=== PATIENT | female | born 1985 | race Two or more races ===

== ENCOUNTER 2023-10-19 17:14 | Outpatient (CLI) | payer OTHER, SELFPAY | END 2023-10-19 17:15 | disposition home or self-care (01) | LOC: NFLDREF 10-25 10:55 | PROVIDERS: PCP Family Medicine; Referring Provider Family Medicine; Visit Provider Nurse Practitioner Family | DX: R30.0 Dysuria (principal); N89.8 Other specified noninflammatory disorders of vagina; B37.31 Acute candidiasis of vulva and vagina | CPT/HCPCS: 87086 ==

== ENCOUNTER 2024-06-15 08:23 | Outpatient (CLI) | payer BC, SELFPAY | END 2024-06-15 08:24 | disposition home or self-care (01) | PROVIDERS: PCP Family Medicine; Visit Provider Registered Nurse | DX: Z00.00 Encounter for general adult medical examination without abnormal findings (principal); Z13.1 Encounter for screening for diabetes mellitus; Z13.6 Encounter for screening for cardiovascular disorders; Z13.29 Encounter for screening for other suspected endocrine disorder | CPT/HCPCS: 80061; 84443 ==

== ENCOUNTER 2024-07-03 09:00 | Outpatient (RCR) | payer BC, SELFPAY ==
--- NOTE | 2024-06-28 10:59 | PT.OPEX ---
PT [place] [facility] Eval PT [facility] Out[facility] Eval Start: 06/28/24 09:19 Freq: Status: Active Protocol: Document 06/28/24 09:19 [facility] (Rec: 06/28/24 10:51 [facility] [id number]) E-signed By Ochoa Stafford, PT Physical Therapy Outpatient Evaluation Insurance Information Recert Due Date 09/20/24 Insurance Name Medicaid,Blue Cross/Blue Shield Insurance Information/Comments [place] Medical Diagnosis OA of patellofemoral joint both knees M17.0 Treating Diagnosis Bilateral knee pain M25.561/ 562 Difficulty walking R26.2 Muscle weakness M62.81 Referring MD Kristina Roland, NUNO Subjective Preferred Name Jana (Dmitry) Subjective Jana presents with bilateral knee pain x 5 years, insidious onset. She had PT ~1 year ago in [place] that consisted primarily of LE strengthening. No significant help, but she continues to do the HEP. She feels the pain inside the knee joints and in the front. Per pt, imaging shows severe OA under patella and knee joints. Patient's mom also had early onset knee OA, starting at 40 years old. By 48 yo she was in a wheelchair. Jana has purchased three different knee knees, some with lateral stays. They help just a little bit. Jana describes her pain as feeling unstable, burning/hot in the knees. It feels like her knees are breaking She also has developed low back pain, she thinks, due to compensating for her knee pain . 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): has to get on her knees to bathe, lifting/moving , transferring Precautions Treatment Precautions/Contraindications Mexican speaking/needs science interpreter Therapy Limitations/Systems Review Not Limited Objective Other/Pertinent Objective Posture: genu valgus, patella amaris SLS: 10 sec each leg, mild sway SL heel raises: R: 8x (pain) L: 10x ROM: LE R: hip WNL knee WNL moderate pain w/ end range flexion L: hip WNL knee WNL, mild discomfort end range knee flexion ankles: WFL, shahzad Strength: LEs Hip flexion: R: 4-/5 L: 4-/5 Hip abduction: R: 4/5 L: 4/5 Hip extension: R: 4-/5 L: 4-/ 5 Knee extension: R: 3+/5 L: 4- /5 Ankle PF: R: 4-/5 (+ knee pain ) L: 4+/5 Ramu test: R: L knee to chest, R thigh to plinth, knee relaxed to ~30 deg knee flexion, pain with stretch L: R knee to chest, L thigh off plinth ~1 inch. + back pain with stretch Palpation: R knee: pain at joint line and w/ patellar med/lateral glides L knee: pain at joint line, painfree patellar glides Functional Test Performed & Score Ambulation: mild limp R, decreased left step length Stairs: step to pattern, favoring R, more painful, knee Assessment Assessment/Impression 38 year old female with apparent genetic predisposition to early onset OA, as her mom reportedly developed knee arthritis when she was [age] and was in a wheelchair by the time she was [age] years old. Jana presents with antalgic gait (R knee pain), pain limiting strength both knees, full but painful R knee flexion, tight hip flexors/quads, biomechanical dysfunction of both knees with genu valgus and patella amaris that likely contribute to her knee joint wear. Jana has been doing a HEP in supine that was given to her by PT last year in [place]. Today, I supplemented her HEP with core strength, hip stretches and closed chain quad strengthening. I do believe that Jana would benefit from a medical membership at [address] [place] [address] to have access to their pool and hot tub. She may also want to consider am OA lateral unloading knee brace, especially for her right knee which appears to be the more painful/involved LE. I recommend continued skilled PT to progress in a closed chain strength and stability HEP. Primary Functional Limitations ambulation, squat, stairs, sleep, get down to/up from floor, caretaking dependent teenage daughter. Plan of Care Rehabilitation Potential Good Rehabilitation Potential Comments Fair given her severity of knee OA and prior experience with PT Good given her age and compliance with PT HEP Physical Therapy Goals In 6-8 weeks, patient will: 1) Ambulate in the community up to 1/4 mile, knee pain max 310 2) Report 50% reduction in knee pain disrupting sleep quality 3) Ambulate up/down stairs w/ one rail, reciprocal, knee pain max 4/10 4) Demo full painfree R knee flexion ROM to facilitate squat to floor when assisting daughter w/ bathing 5) I with HEP to facilitate ongoing LE/core strength and self-management of residual symptopms Coordination/Communication With Referral Source Treatment Plan/Direct Interventions Joint Mobilization,Manual Therapy,Neuromuscular Re-ed, Self-Care/Home Management, Therapeutic Activities, Therapeutic Exercises Direct Interventions Clarification Rec pool ex. Progressive HEP( Comments CKC/motor control, core/LEs) Frequency/Duration 1x/ week for 6-8 weeks Patient Will Be Discharged From Therapy Completion of LTG(s), Independent w/HEP, Independently Progressing Evaluation Billing Untimed Code Treatment Minutes 30 Complexity Low Certification Information Initial Certification Date 06/28/24 Ending Certification Date 09/20/24 Provider Signature Required Yes Provider Signature Shows Agreement With POC & Medical Necessity Physician NPI Number Write NPI# Here Physician Comment/Change : Physician Signature & Date Requested Please Sign/Date Here
--- NOTE | 2024-06-28 11:01 | REH.PT ---
Huber Acevedo. I evaluated Jana today. I think she would benefit from access to [facility] for use of their pool and hot tub. Would you be willing to write a prescription for a medical membership? She will still need to pay, but at least it would provide her access. Also, what are your thoughts on her possibly using an OA lateral unloading right knee brace? Her right knee appears to be more involved than her left currently. Thank you for your help with these questions. Ochoa Stafford PT, [phone]
== END 2024-10-11 17:26 | disposition home or self-care (01) ==
PROVIDERS: PCP Registered Nurse; Visit Provider Physician Assistant Surgical
DX: M17.0 Bilateral primary osteoarthritis of knee (principal); M25.562 Pain in left knee; M25.561 Pain in right knee; M62.81 Muscle weakness (generalized); R26.2 Difficulty in walking, not elsewhere classified; Z51.89 Encounter for other specified aftercare
CPT/HCPCS: 97110; 97161; T1013

== ENCOUNTER 2024-07-05 10:38 | Outpatient (CLI) | payer BC, SELFPAY ==
--- NOTE | 2024-07-05 10:45 | CRLHL7_ITS ---
For Patients: As a result of the Century Cures Act, medical imaging exams and procedure reports are released immediately into your electronic medical record. You may view this report before your referring provider. If you have questions, please contact your health care provider. BILATERAL SCREENING MAMMOGRAM WITH COMPUTER-AIDED DETECTION AND TOMOSYNTHESIS TECHNIQUE: CC and MLO views were obtained. These mammographic images have been obtained using full-field digital technique. These mammographic images were interpreted with the benefit of computer-aided detection. Breast Tomosynthesis was used in this interpretation. COMPARISON FILM: Baseline. FINDINGS: There are scattered areas of fibroglandular density. IMPRESSION: There is no radiographic evidence for malignancy. ASSESSMENT: BI-RADS Category 1: Negative RECOMMENDATION: Routine screening mammogram in 1 year. A lay language report of this examination will be provided to the patient. Huseyin Khan M.D. Diagnostic Radiologist [email or web address] SP/Dictated by: Huseyin Khan MD @ 07/13/2024 9:51:00 AM (Electronically Signed)
== END 2024-07-05 10:39 | disposition home or self-care (01) ==
PROVIDERS: PCP Registered Nurse; Visit Provider Registered Nurse
DX: Z12.31 Encounter for screening mammogram for malignant neoplasm of breast (principal)
CPT/HCPCS: 77063; 77067; T1013

== ENCOUNTER 2024-08-26 09:54 | Emergency (ER) | payer MEDICAID, SELFPAY ==
[2024-08-26 10:04] VITALS: BP 115/77; PULSE 70; RESP 18; TEMP 36.6; O2SAT 98; BMI 32.4
--- NOTE | 2024-08-26 11:29 | ED_ITS ---
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 She has a history of low back pain in the past and actually had an MRI about 5 years ago that showed a small bulging disc in her back. She has been having trouble with recurrent low back pain again for several months. It has been getting gradually worse over the past several weeks. She has already been seeing her doctor and has been taking Tylenol, ibuprofen, and celecoxib. No known specific injury to make it worse. She does note that it tends to get worse when she does all the activities such as moving, walking, bending or other activities for cleaning her house. It has been getting worse. Today it is more painful when she tries to straighten up or walk around. Sometimes she also gets pain radiating to her right buttock and sometimes a little bit of pain all way down into her right foot. She is concerned that she might have a new or worsening bulging in her disc. Urination and bowel movements have been normal. No fever. No weight loss. No known injury or fall. The pain does not radiate up into her flank or rib cage. It is primarily across the lower half of her lumbar spine and worse on the right than on the left. Related Data Previous Rx's ?Medication ?Instructions ?Recorded cyclobenzaprine 10 mg tablet 10 mg PO TID PRN muscle spasm #14 08/26/24 tabs cyclobenzaprine 10 mg tablet 10 mg PO TID PRN muscle spasm #14 08/26/24 tabs hydrocodone 5 mg-acetaminophen 325 1 tab PO Q4-6H PRN pain #14 tabs 08/26/24 mg tablet hydrocodone 5 mg-acetaminophen 325 1 tab PO Q4H PRN pain #14 tabs 08/26/24 mg tablet methylprednisolone 4 mg tablets in See Rx Instructions PO .COMPLEX 08/26/24 a dose pack (Medrol (Danilo)) #21 ea methylprednisolone 4 mg tablets in See Rx Instructions PO .COMPLEX 08/26/24 a dose pack (Medrol (Danilo)) #21 ea ondansetron 4 mg disintegrating 4 mg PO Q8H PRN nausea and 08/26/24 tablet vomiting #10 tabs ondansetron HCl 4 mg tablet 4 mg PO Q8H PRN nausea and 08/26/24 vomiting 4 days #10 tabs Allergies Allergy/AdvReac Type Severity Reaction Status Date / Time No Known Drug Allergies Allergy Verified 08/26/24 10:09 Exam Narrative: Exam Narrative: Constitutional: Appears well-developed and well-nourished. Alert through pulp refiner operator. I think she understands quite a bit of Nepali.. Conversant. Non toxic. HENT: Head: Atraumatic. Nose: Nose normal. Mouth/Throat: Oral mucosa is clear and moist. no trismus. Eyes: Conjunctivae normal. EOM normal. Pupils equal, round, and reactive to light. No scleral icterus. Neck: Normal range of motion. Neck supple. No tracheal deviation present. Cardiovascular: Normal rate, regular rhythm. No gallop. No friction rub. No murmur heard. Symmetric DP and PT artery pulses Pulmonary/Chest: Effort normal. No stridor. No respiratory distress. No wheezes. No rales. No rhonchi . No tenderness. Abdominal: Soft.No distension. No mass. No tenderness. No rebound. No guarding. Musculoskeletal: RUE: Normal range of motion. No tenderness. No deformity LUE: Normal range of motion. No tenderness. No deformity RLE: Normal range of motion. No edema. No tenderness. No deformity LLE: Normal range of motion. No edema. No tenderness. No deformity Normal inspection of her low back. She is endorsing pain across her lower lumbar spine. There is no midline tenderness or step-off. No redness. No bruising. No rash. Pelvis is stable. Mild pain across her posterior pelvis without any clear point tenderness. Neurological: Alert and oriented to person, place, and time. Normal strength. CN II-VII intact. No sensory deficit. GCS eye subscore is 4. GCS verbal subscore is 5. GCS motor subscore is 6. Normal coordination Sensory: Normal light touch sensation bilaterally on the anteromedial thigh (L3), medial malleolus (L4), dorsal first web space (L5), lateral malleolus (S1). Strength: 5/5 strength hip flexors (L3) on the rig ht and left 5/5 strength in the quadriceps (L4) on t he right and left 5/5 strength in the tibialis anterior 5/5 strength in the EHL (L5) on the righ t and left 5/5 strength in the gastrocnemius (S1) o n the right and left 5/5 strength in the hamstring on the rig ht and left DTRs: symmetric in the patella (2/4) Positive straight leg raise on the right. Negative on the left.. Skin: Skin is warm and dry. No rash noted. No pallor. Normal capillary refill. Psychiatric: Normal mood. Normal affect. Polite. Const: Vital Signs, click to edit/add: Vital Signs - 24 hr 08/26/24 10:04 Temperature 98 F Pulse Rate [Right Pulse Oximeter] 70 Respiratory Rate 18 Blood Pressure [Ri ght Upper Arm] 115/77 Pulse Oximetry 98 Oxygen Delivery Me thod Room Air Course Vital Signs Vital signs: Initial Vital Signs Temperature 98 F 08/26/24 10:04 Temperature Source Temporal Artery Scan 08/26/24 10:04 Pulse Rate 70 08/26/24 10:04 Pulse Rhythm Regular 08/26/24 10:04 Respiratory Rate 18 08/26/24 10:04 Blood Pressure 115/77 08/26/24 10:04 Blood Pressure Mean 89 08/26/24 10:04 Blood Pressure Position Sitting 08/26/24 10:04 Pulse Oximetry 98 08/26/24 10:04 Oxygen Delivery Method Room Air 08/26/24 10:04 Vital Signs Temperature 98 F 08/26/24 10:04 Pulse Rate 70 08/26/24 10:04 Respiratory Rate 18 08/26/24 10:04 Blood Pressure 115/77 08/26/24 10:04 Pulse Oximetry 98 08/26/24 10:04 Oxygen Delivery Method Room Air 08/26/24 10:04 Temperature 98 F 08/26/24 10:04 Pulse Rate 70 08/26/24 10:04 Respiratory Rate 18 08/26/24 10:04 Blood Pressure 115/77 08/26/24 10:04 Pulse Oximetry 98 08/26/24 10:04 Oxygen Delivery Method Room Air 08/26/24 10:04 Medical Decision Making [facility] Narrative Medical decision making narrative: This patient presented with back pain associated with right leg pain and some right leg intermittent numbness. Broad differential considered. The patient did not sustain any trauma, therefore x-rays are not necessary due to the low likelihood of fracture or subluxation. The patient has not had a fever, saddle/perineal anesthesia, bilateral foot numbness, or bowel or bladder dysfunction. There is no clinical evidence of cauda equina syndrome, discitis, spinal/epidural space hematoma or epidural abscess. The neurological exam is normal save for a positive straight leg raise on the right. With the patient's symptoms of several months of back pain getting worse over a few weeks with pain radiating down her right leg and concerned that she may have a lumbar radiculopathy on the right. Unfortunately I am not able to obtain an MRI for her here in the ER today because it is the weekend. She will follow-up with her primary care provider as soon as possible to arrange an outpatient MRI. Her precautions to return to the ER for re-evaluation if she does have any progressing numbness or weakness, new bowel or bladder disturbance, or other worsening or uncontrolled pain, fever or other worsening symptoms. The patient will be discharged with pain medications to use as directed. Ice or heat to the back and stretching exercises. No heavy lifting, bending or twisting. Return if increasing pain, numbness, weakness, or bowel or bladder dysfunction. The patient was advised to schedule follow-up with their primary doctor within 2-3 days to re-assess symptoms. Return precautions reviewed and questions answered. Prescriptions for Medrol dose pack, hydrocodone, Flexeril, and Zofran T use for opiate induced nausea. Opiate and sedation precautions reviewed. Discharge Plan Discharge Clinical Impression: Lumbar radiculopathy, Low back pain Instructions: Acute Low Back Pain (ED), Lumbar Radiculopathy (ED) Additional Instructions: Please call your doctor tomorrow to arrange an ER follow-up appointment for your back within the next 3-5 days. Ask your doctor to recheck your back and if you are still having pain going down your leg, your doctor may order an MRI As we discussed, come back to the ER right away if you have worsening symptoms, new numbness or weakness in your leg, fever, or any other problems. Continue to use ibuprofen or Tylenol if needed for pain. At the prescription muscle relaxer and pain killer if needed. Be careful with pain killers because they cause dizziness, drowsiness, constipation, and can be addictive. Use the nausea medication if needed. Start on the oral steroid today. If you have a bulging disc, this may help your back feel better. . Prescriptions: New hydrocodone-acetaminophen 5-325 mg tablet 1 tab PO Q4H PRN (Reason: pain) Qty: 14 0RF cyclobenzaprine 10 mg tablet 10 mg PO TID PRN (Reason: muscle spasm) Qty: 14 0RF ondansetron HCl 4 mg tablet 4 mg PO Q8H PRN (Reason: nausea and vomiting) 4 Days Qty: 10 0RF methylprednisolone [Medrol (Danilo)] 4 mg tablets,dose pack See Rx Instructions .ROUTE .COMPLEX Qty: 21 0RF Rx Instructions: for 6 days cyclobenzaprine 10 mg tablet 10 mg PO TID PRN (Reason: muscle spasm) Qty: 14 0RF hydrocodone-acetaminophen 5-325 mg tablet 1 tab PO Q4-6H PRN (Reason: pain) Qty: 14 0RF methylprednisolone [Medrol (Danilo)] 4 mg tablets,dose pack See Rx Instructions .ROUTE .COMPLEX Qty: 21 0RF Rx Instructions: for 6 days ondansetron 4 mg tablet,disintegrating 4 mg PO Q8H PRN (Reason: nausea and vomiting) Qty: 10 0RF Stand Alone Forms: fav.or.itth Info Instructions
== END 2024-08-26 13:01 | disposition home or self-care (01) ==
LOC: ED 12:21
PROVIDERS: Emergency Provider Emergency Medicine
DX: M54.16 Radiculopathy, lumbar region (principal)
CPT/HCPCS: 99283

== ENCOUNTER 2024-11-30 08:30 | Outpatient (RCR) | payer MEDICAID, SELFPAY ==
--- NOTE | 2024-10-12 10:11 | PT.OPEX ---
PT [place] Outpatient Eval PT [facility] Outpatient Eval Start: 10/12/24 09:39 Freq: Status: Active Protocol: Document 10/12/24 09:39 EVELYN (Rec: 10/12/24 10:02 EVELYN [id number]) E-signed By Nayla Mckinney DPT Physical Therapy Outpatient Evaluation Insurance Information Recert Due Date 01/10/25 Insurance Name Medicaid,are Medical Diagnosis LBP Treating Diagnosis LBP, R LE radicular pain/sx, core/hip/glut weakness with hx of chronic LBP issues, limited tolerance for bending/ twisting/lifting/housework Subjective Subjective Patient reports chronic LBP with R radicular pain/sx. States she's had LBP off/on for the last 5-6 years. She had an MRI about 5 years ago showing a bulging disc in her LB. About a month ago, she woke up with R LE numbness and went to the ED. She was issued some pain meds and steroids. Reports taking the steroids for about 20 days. This was helpful in decreasing her pain/sx. She denies any R LE radicular pain/sx this session. LB has been feeling better. Pain range 5-8/10. Reports 5/10 this session. Patient is sitting comfortably , moving well. Reports still having some flare ups of pain to 8/10. When pain flares up she is using ibuprofen, aleve, or tylenol for 2-3 days to help decrease the pain. She is using CBD ointments and biofreeze daily. Icy hot patches 2x/week. Sleeping ok, interrupted at times. Also reports issues with bilateral knee pain. Patient reports some prior PT for her LB. She is still doing some home exercises - demonstrates bridging, bilateral knee to chest stretching, side planks, and HS stretching. Getting these exercises in about 2x/ week. Date of Last Physician Visit 08/30/24 Current Work Status Budder Occupation HVAC MANAGER/homemaker Precautions Treatment Precautions/Contraindications bilateral knee pain/OA, chronic LBP MRI about 5 years ago showing bulging disc in LB Assessment Assessment/Impression Patient is a 38 year old female with LBP, R LE radicular pain/sx, core/hip/ glut weakness with hx of chronic LBP issues, limited tolerance for bending/twisting /lifting/housework. She had flare up of pain/sx about a month ago and went to the ED. She was on steroids for 20 days and reports decreased pain/sx. Denies R LE pain/sx this session. Reports some ongoing LBP but improving. Pain today rated 5/10. Pain range 5-8/10. Pain is localized to lower lumbar region, SIJs. Tightness, stiffness noted in LB/SI with palpation and mobilizations. Patient with some L hip tightness, denies L hip pain. Pelvic alignment assessed and equal this session. Trunk ROM WFL. Slump and SLR tests negative R/L this session. Patient with core/hip/glut weakness with hx of chronic LBP. She has been doing some home exercises from prior PT for her back. Reviewed these exercises this session. Patient running late to PT session so treatment time was shorter today. Able to loosen up LB/SI/hips with MT treatment. Initiated HEP, handouts issued. Patient would benefit from skilled PT for pain/sx management, core/ hip/glut strengthening, improved spinal/pelvic/SI stabilization, and establishment of HEP. Plan of Care Rehabilitation Potential Good Physical Therapy Goals 1. Decrease LBP to less than/ equal to 4/10 with daily/work activities and with the progression of PT activities over the next 4-6 weeks. 2. Patient will be educated on posture/body mechanics and pain management strategies over the next 4-6 weeks for decreased stress on LB and decreased LBP. 3. Decrease LBP so that patient is able to sleep through the night on a regular basis within 3-4 weeks . 4. Improve core/hip/glut strength and posture over the next 10-12 weeks for improved posture, decreased stress on LB, decreased LBP, improved pelvic/SI stability, and improved tolerance for extended sitting/standing/walking and bending/lifting/twisting for daily/work activities. 5. Patient will be I with HEP within 12 weeks for progression toward above goals, ongoing self management of pain/sx, ongoing self improvements in core/hip/glut strength, posture/body mechanics, and for improved tolerance for bending/lifting/ twisting, extended sitting/ standing/walking activities and return to PLF with daily/work activities . Coordination/Communication With Referral Source Treatment Plan/Direct Interventions Manual Therapy,Therapeutic Exercises Frequency/Duration 1x/week Patient Will Be Discharged From Therapy Completion of LTG(s),Skills Plateau,Independent w/HEP, Independently Progressing Evaluation Billing Untimed Code Treatment Minutes 18 Complexity Moderate Certification Information Initial Certification Date 10/12/24 Ending Certification Date 01/10/25 Provider Signature Required Yes Provider Signature Shows Agreement With POC & Medical Necessity Physician NPI Number Write NPI# Here Physician Comment/Change : Physician Signature & Date Requested Please Sign/Date Here
== END 2025-03-30 23:59 | disposition home or self-care (01) ==
PROVIDERS: PCP Registered Nurse; Visit Provider Registered Nurse
DX: M54.50 Low back pain, unspecified (principal); Z51.89 Encounter for other specified aftercare
CPT/HCPCS: 97110; 97140; 97162; T1013

== ENCOUNTER 2025-05-01 07:02 | Outpatient (CLI) | payer MEDICAID, SELFPAY ==
--- NOTE | 2025-05-01 07:15 | MR_ITS ---
[address] [address] Phone:?[phone] Fax:?[phone] Referring Physician Information: TERENCE Lehman [address] [facility] [address] Phone:?[phone] Fax:?[phone] Patient:Harish Mills D.O.B:?1985 Sex:?Female Phone:?[phone] [facility] MRN:?[id number] Exam Date:?05/01/2025 EXAM: MRI of the RIGHT KNEE, without contrast CLINICAL HISTORY: Ongoing right knee pain. Evaluate for meniscal tear. COMPARISONS: Plain radiographs 06/26/2024. MRI 02/12/2021. TECHNICAL: MR sequences of the right knee: sagittals: PD, PDFS coronals: PD, STIR axials: PD, T2 FS CONTRAST: None SEDATION: None FINDINGS: Bones: No fracture or destructive osseous lesion. 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 Retinacula: The medial and lateral retinacula are intact. Fat pads: Edema-like signal within the superolateral portion of the infrapatellar fat pad is associated with patellar tendon-lateral femoral condyle friction/patellar maltracking. The Insall Salvati index is within normal limits. The lateral trochlear inclination angle is within normal limits. The tibial tubercle trochlear groove distance measures 1.8 cm. Knee joint: Effusion: Physiologic amount of joint fluid. Popliteal cyst: None. Intra-articular bodies: None. Posteromedial corner: The semimembranosus and pes anserine tendons are intact. Medial compartment: Medial meniscus: Intact. Cartilage: Intact. Lateral compartment: Lateral meniscus: Intact. Cartilage: Intact. Ligaments: Anterior cruciate ligament: Intact. Posterior cruciate ligament: Intact. Medial collateral ligament: Intact. Posterior oblique ligament: Intact. Fibular collateral ligament: Intact. Posterolateral corner: The distal biceps femoris tendon, iliotibial band, popliteus tendon, popliteus muscle, popliteofibular ligament, and arcuate ligament are intact. Extensor mechanism: Patellar tendon: Intact. Quadriceps tendon: Intact. IMPRESSION: 1. 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 2. Edema-like signal within the superolateral portion of the infrapatellar fat pad is associated with patellar tendon-lateral femoral condyle friction/patellar maltracking. The tibial tubercle to trochlear groove distance measures 1.8 cm. The Insall Salvati index and lateral trochlear inclination angle measurements are within normal limits. 3. No ligamentous, tendinous, or meniscal pathology of the right knee. RCB Electronically signed on 05/02/2025 7:26:00 AM by Tomas Joseph M.D.
--- NOTE | 2025-05-01 08:15 | MR_ITS ---
[address] [address] Phone:?[phone] Fax:?[phone] Referring Physician Information: TERENCE Lehman [address] [facility] [address] Phone:?[phone] Fax:?[phone] Patient:Harish Mills D.O.B:?1985 Sex:?Female Phone:?[phone] [facility] MRN:?[id number] Exam Date:?05/01/2025 EXAM: MRI of the LEFT KNEE, without contrast CLINICAL HISTORY: Ongoing left knee pain. COMPARISONS: MRI 02/26/2021. Plain radiographs 06/26/2024. TECHNICAL: MR sequences of the left knee: sagittals: PD, PDFS coronals: PD, STIR axials: PD, T2 FS CONTRAST: None SEDATION: None FINDINGS: Bones: A probable small enchondroma within the proximal tibial metaphysis is also present on previous MRI 02/26/2021. The lesion is well marginated and has a narrow zone of transition. No aggressive imaging feature is seen. 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 Retinacula: The medial and lateral retinacula are intact. Fat pads: The infrapatellar, quadriceps, and prefemoral fat pads are unremarkable. Edema-like signal within the superolateral portion of the infrapatellar fat pad is associated with patellar tendon-lateral femoral condyle friction/patellar maltracking. The Insall Salvati index is within normal limits. The lateral trochlear inclination angle is within normal limits. The tibial tubercle to trochlear groove distance measures 1.7 cm. Knee joint: Effusion: Trace left knee joint effusion. Popliteal cyst: None. Intra-articular bodies: None. Posteromedial corner: The semimembranosus and pes anserine tendons are intact. Medial compartment: Medial meniscus: Intact. Cartilage: Intact. Lateral compartment: Lateral meniscus: Intact. Cartilage: Intact. Ligaments: Anterior cruciate ligament: Intact. Posterior cruciate ligament: Intact. Medial collateral ligament: Intact. Posterior oblique ligament: Intact. Fibular collateral ligament: Intact. Posterolateral corner: The distal biceps femoris tendon, iliotibial band, popliteus tendon, popliteus muscle, popliteofibular ligament, and arcuate ligament are intact. Extensor mechanism: Patellar tendon: Intact. Quadriceps tendon: Intact. There is nonspecific soft tissue swelling anterior to the patellar tendon. IMPRESSION: 1. 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 2. Edema-like signal within the superolateral portion of the infrapatellar fat pad is associated with patellar tendon-lateral femoral condyle friction/patellar maltracking. The tibial tubercle to trochlear groove distance measures 1.7 cm. The Insall Salvati index and lateral trochlear inclination angle measurements are within normal limits. 3. Trace left knee joint effusion. 4. Probable small enchondroma within the proximal tibial metaphysis, also present on previous MRI 02/26/2021. No aggressive imaging feature. 5. No ligamentous, tendinous, or meniscal pathology of the left knee. RCB Electronically signed on 05/02/2025 7:20:00 AM by Tomas Joseph M.D.
== END 2025-05-01 07:03 | disposition home or self-care (01) ==
LOC: MRI 07:02
PROVIDERS: PCP Registered Nurse; Visit Provider Physician Assistant Surgical
DX: M25.561 Pain in right knee (principal); M22.41 Chondromalacia patellae, right knee; M25.562 Pain in left knee; M22.42 Chondromalacia patellae, left knee; M25.462 Effusion, left knee; G89.29 Other chronic pain
CPT/HCPCS: 73721; 80053; 86038; 86200; 86431; T1013

== ENCOUNTER 2025-06-26 09:27 | Outpatient (CLI) | payer MEDICAID, SELFPAY | END 2025-06-26 09:28 | disposition home or self-care (01) | LOC: INJ CL 09:30 | PROVIDERS: PCP Internal Medicine; Visit Provider Nurse Anesthetist, Certified Registered | DX: M17.11 Unilateral primary osteoarthritis, right knee (principal); M25.561 Pain in right knee | CPT/HCPCS: 64454; T1013 ==

== ENCOUNTER 2025-07-10 09:37 | Outpatient (CLI) | payer MEDICAID, SELFPAY | END 2025-07-10 09:38 | disposition home or self-care (01) | PROVIDERS: PCP Internal Medicine; Visit Provider Nurse Anesthetist, Certified Registered | DX: M17.11 Unilateral primary osteoarthritis, right knee (principal); M25.561 Pain in right knee | CPT/HCPCS: 64624; T1013; J0665; J1885; J2250; J3010 ==

== ENCOUNTER 2025-08-28 08:51 | Outpatient (CLI) | payer MEDICAID, SELFPAY | END 2025-08-28 08:52 | disposition home or self-care (01) | LOC: INJ CL 08:53 | PROVIDERS: PCP Internal Medicine; Visit Provider Nurse Anesthetist, Certified Registered | DX: M17.11 Unilateral primary osteoarthritis, right knee (principal); M25.561 Pain in right knee | CPT/HCPCS: 64624; T1013; J0665; J1885; J2250; J2405; J3010 ==